=== PATIENT | female | born 1970 | race Caucasian/White ===

== ENCOUNTER → 2021-06-08 14:12 | Outpatient (BNVA) | payer BC, SELFPAY | PROVIDERS: PCP Internal Medicine; Visit Provider Physician Assistant Medical | DX: F17.210 Nicotine dependence, cigarettes, uncomplicated (principal) ==

== ENCOUNTER 2021-06-08 15:04 | Outpatient (REF) | payer BC, SELFPAY ==
--- NOTE | ~2021-06-08 | CT_ITS ---
EXAMINATION: CT CHEST SCREENING CLINICAL INFORMATION: Current smoker. 38 pack year history. COMPARISON: None. TECHNIQUE: Multidetector volumetric CT imaging of the chest is performed without contrast using low dose technique. Additional 2D coronal and sagittal reformatted images and axial 3D maximum intensity projection (MIP) images are generated on the CT workstation. This CT examination was performed using dose optimization techniques as appropriate, variously including the following: *Automated exposure control *Adjustment of mA and/or kV according to patient size (this includes techniques or standardized protocols for targeted exams where dose is matched to indication/reason for exam; i.e. extremities or head) *Use of iterative reconstruction technique DLP: 42 mGy-cm FINDINGS: LUNGS: The lungs are clear. No pulmonary nodules are seen. No evidence of emphysema interstitial lung disease or bronchiectasis is seen. No endobronchial or endotracheal lesion is seen. MEDIASTINUM: The mediastinum is normal. PLEURA: There is no pleural effusion. No pleural mass or thickening. AXILLA: No lymphadenopathy. UPPER ABDOMEN: Unremarkable OSSEOUS STRUCTURES: Unremarkable. CT/CT lung screening IMPRESSION: Unremarkable examination. ASSESSMENT: Lung-RADS category 1: Negative RECOMMENDATION: Annual low-dose chest CT recommended.
== END 2021-06-08 15:05 | disposition home or self-care (01) ==
LOC: HO.CT 15:04
PROVIDERS: PCP Internal Medicine; Visit Provider Physician Assistant Medical
DX: Z12.2 Encounter for screening for malignant neoplasm of respiratory organs (principal); F17.210 Nicotine dependence, cigarettes, uncomplicated
CPT/HCPCS: 71271

== ENCOUNTER 2021-09-06 11:01 | Outpatient (REF) | payer BC, SELFPAY ==
[2021-09-06 11:08] LABS: Appearance Urine CLEAR; Color Urine YELLOW; Glucose Urine UA NEG (NEG); Leukocyte Esterase Urine NEG (NEG); Nitrite Urine NEG (NEG); Urine Blood NEG (NEG); Urine Ketones NEG (NEG); Urine Protein NEG (NEG-TRACE)
[2021-09-06 12:14] LABS: Influenza A PCR NEGATIVE (Negative); Influenza B PCR NEGATIVE (Negative); Resp Syncy Virus RNA Qual PCR NEGATIVE (Negative); SARS COV2 PCR INHOUSE NEGATIVE (Negative)
== END 2021-09-06 11:02 | disposition home or self-care (01) ==
LOC: HO.LNP 11:01
PROVIDERS: Visit Provider Physician Assistant Medical
DX: Z20.822 Contact with and (suspected) exposure to COVID-19 (principal); B34.9 Viral infection, unspecified; R10.9 Unspecified abdominal pain
CPT/HCPCS: 0241U; 81003

== ENCOUNTER 2021-10-18 10:52 | Outpatient (REF) | payer BC, SELFPAY ==
[2021-10-18 14:08] LABS: Hematocrit 44.7 % (37.0-47.0); Hemoglobin 14.7 g/dl (12.0-16.0); Mean Corpuscular HGB Conc 32.9 g/dl (31.0-35.0); Mean Corpuscular Hemoglobin 30.4 pg (27.0-33.0); Mean Corpuscular Volume 92.4 fL (80.0-98.0); Mean Platelet Volume 9.9 fL (9.4-12.3); Platelet Count 270 X10*3/uL (160-400); Red Blood Count 4.84 X10*6/uL (4.20-5.50); Red Cell Distribution Width 13.3 % (11.0-16.0); White Blood Count 9.2 X10*3/uL (4.8-10.8)
[2021-10-18 14:17] LABS: Estimated Average Glucose 126 mg/dL
[2021-10-18 14:37] LABS: Alanine Aminotransferase 26 U/L (0-31); Albumin Level 4.6 g/dL (3.5-5.0); Alkaline Phosphatase 88 U/L (39-117); Anion Gap 11 (12-20); Aspartate Amino Transferase 18 U/L (5-31); Bilirubin Total 0.3 mg/dL (0.0-1.0); Blood Urea Nitrogen 10 mg/dL (9-16); Calcium 9.9 mg/dL (8.4-10.2); Carbon Dioxide 28 mmol/L (22-29); Chloride 108 mmol/L (96-108); Cholesterol 156 mg/dL; Estimated Glomerular Filt Rate > 60; Glucose Fasting 109 mg/dL (60-99); HDL Cholesterol 44 mg/dL; LDL Cholesterol Calculated 94 mg/dl; Potassium 4.8 mmol/L (3.3-5.1); Sodium 142 mmol/L (135-145); Total Protein 7.3 g/dL (6.5-8.0); Triglycerides 93 mg/dL
[2021-10-18 14:47] LABS: Vitamin D 25-OH Total 61.5 ng/mL (>30)
[2021-10-18 14:48] LABS: Creatinine Urine 48.16 mg/dL; Microalbumin Urine < 5.0 mg/L
[2021-10-18 15:26] LABS: Folate 11.5 ng/mL (> or = 4.0); Vitamin B12 506 pg/mL (200-900)
== END 2021-10-18 10:53 | disposition home or self-care (01) ==
LOC: HO.HMGCLDS 10:52
PROVIDERS: PCP Internal Medicine; Visit Provider Internal Medicine
DX: E78.5 Hyperlipidemia, unspecified (principal); R73.9 Hyperglycemia, unspecified
CPT/HCPCS: 36415; 80053; 80061; 82043; 82306; 82607; 82746; 83036; 85027

== ENCOUNTER 2021-11-06 13:49 | Outpatient (REF) | payer BC, SELFPAY ==
--- NOTE | ~2021-11-06 | US_ITS ---
EXAMINATION: US EXTRACRANIAL CAROTID DUPLEX, BILATERAL CLINICAL INFORMATION: Bilateral carotid bruits. COMPARISON: None TECHNIQUE: Real-time ultrasound and Doppler techniques (integrating B-mode 2-D vascular images, Doppler spectral analysis and color-flow Doppler imaging) were utilized to interrogate the extracranial carotid arteries, the vertebral arteries and proximal subclavian arteries bilaterally. The degree of stenosis is determined by criteria similar to NASCET. FINDINGS: Right Side: 1. There is no atherosclerotic plaque seen in the bifurcation/proximal ICA region. 2. The common carotid artery PSV proximally is 142 cm/s and distally 128 cm/s. 3. The proximal internal carotid artery velocities are 120 cm/s systolic and 31.4 cm/s diastolic. 4. The proximal external carotid artery PSV is 112 cm/s. 5. The vertebral artery shows antegrade flow. 6. The subclavian artery waveforms are normal. Left Side: 1. There is no atherosclerotic plaque seen in the bifurcation/proximal ICA region. 2. The common carotid artery PSV proximally is 140 cm/s and distally 111 cm/s. 3. The proximal internal carotid artery velocities are 88.5 cm/s systolic and 30.5 cm/s diastolic. 4. The proximal external carotid artery PSV is 120 cm/s. 5. The vertebral artery shows antegrade flow. 6. The subclavian artery waveforms are normal. US/US carotid duplex BI IMPRESSION: 1. RIGHT: No hemodynamically significant stenosis. 2. LEFT: No hemodynamically significant stenosis. 3. Normal antegrade flow seen in both vertebral arteries.
== END 2021-11-06 13:50 | disposition home or self-care (01) ==
LOC: HO.HMGCX 13:49
PROVIDERS: PCP Internal Medicine; Visit Provider Internal Medicine
DX: R09.89 Other specified symptoms and signs involving the circulatory and respiratory systems (principal)
CPT/HCPCS: 93880

== ENCOUNTER 2021-11-12 10:21 | Outpatient (REF) | payer BC, SELFPAY ==
--- NOTE | ~2021-11-12 | XR_ITS ---
EXAMINATION: XR SINUSES CLINICAL INFORMATION: Chronic sinusitis. COMPARISON: None TECHNIQUE: 3 views of the sinuses were obtained. FINDINGS: There is no air-fluid levels seen in the maxillary and frontal sinuses. There is minimal mucoperiosteal thickening left maxillary sinus. The mastoid air cells are well-aerated. No gross bony abnormality seen involving the maxillofacial bone on this one view. XR/XR sinus dash view IMPRESSION: Mild chronic left maxillary sinusitis. No air-fluid levels seen in the maxillary or frontal sinuses to suspect any acute sinusitis.
== END 2021-11-12 10:22 | disposition home or self-care (01) ==
LOC: HO.HMGCX 10:21
PROVIDERS: Visit Provider Internal Medicine
DX: J32.9 Chronic sinusitis, unspecified (principal)
CPT/HCPCS: 70210

== ENCOUNTER 2021-12-07 13:49 | Outpatient (REF) | payer BC, SELFPAY ==
[2021-12-22 14:43] LABS: Viral Culture Source NASAL
== END 2021-12-07 13:50 | disposition home or self-care (01) ==
LOC: HO.LNP 13:49
PROVIDERS: Visit Provider Internal Medicine
DX: J30.9 Allergic rhinitis, unspecified (principal)
CPT/HCPCS: 87252

== ENCOUNTER 2022-02-12 10:31 | Outpatient (REF) | payer BC, SELFPAY ==
[2022-02-12 12:01] LABS: Estimated Average Glucose 117 mg/dL; Hemoglobin A1c % 5.7 %
[2022-02-12 12:05] LABS: Creatinine Urine 57.96 mg/dL; Microalbumin Urine < 5.0 mg/L
[2022-02-12 12:08] LABS: Alanine Aminotransferase 19 U/L (0-31); Albumin Level 4.6 g/dL (3.5-5.0); Alkaline Phosphatase 83 U/L (39-117); Anion Gap 12 (12-20); Aspartate Amino Transferase 16 U/L (5-31); Bilirubin Total 0.4 mg/dL (0.0-1.0); Blood Urea Nitrogen 13 mg/dL (9-16); Calcium 9.7 mg/dL (8.4-10.2); Carbon Dioxide 26 mmol/L (22-29); Chloride 108 mmol/L (96-108); Cholesterol 145 mg/dL; Estimated Glomerular Filt Rate > 60; Glucose Fasting 107 mg/dL (60-99); HDL Cholesterol 40 mg/dL; LDL Cholesterol Calculated 92 mg/dl; Potassium 4.2 mmol/L (3.3-5.1); Sodium 142 mmol/L (135-145); Total Protein 7.2 g/dL (6.5-8.0); Triglycerides 68 mg/dL
== END 2022-02-12 10:32 | disposition home or self-care (01) ==
LOC: HO.HMGCLDS 10:31
PROVIDERS: Visit Provider Internal Medicine
DX: J32.9 Chronic sinusitis, unspecified (principal); R73.9 Hyperglycemia, unspecified; E78.5 Hyperlipidemia, unspecified
CPT/HCPCS: 36415; 80053; 80061; 82043; 83036

== ENCOUNTER 2022-08-14 09:35 | Outpatient (REF) | payer BC, SELFPAY ==
[2022-08-14 11:48] LABS: Estimated Average Glucose 120 mg/dL; Hemoglobin A1C 150.4481 umol/L; Hemoglobin A1c % 5.8 %
[2022-08-14 11:59] LABS: Alanine Aminotransferase 29 U/L (0-31); Albumin Level 4.7 g/dL (3.5-5.0); Alkaline Phosphatase 104 U/L (39-117); Anion Gap 14 (12-20); Aspartate Amino Transferase 23 U/L (5-31); Bilirubin Total < 0.2 mg/dL (0.0-1.0); Blood Urea Nitrogen 14 mg/dL (9-16); Calcium 9.9 mg/dL (8.4-10.2); Carbon Dioxide 27 mmol/L (22-29); Chloride 107 mmol/L (96-108); Cholesterol 209 mg/dL; Estimated Glomerular Filt Rate > 60; Glucose Fasting 107 mg/dL (60-99); HDL Cholesterol 36 mg/dL; LDL Cholesterol Calculated 99 mg/dl; Potassium 4.1 mmol/L (3.3-5.1); Sodium 144 mmol/L (135-145); Total Protein 7.3 g/dL (6.5-8.0); Triglycerides 373 mg/dL
[2022-08-14 12:08] LABS: TSH reflex Free T4 3.34 uIU/mL (0.32-4.0)
== END 2022-08-14 09:36 | disposition home or self-care (01) ==
LOC: HO.HMGCLDS 09:35
PROVIDERS: PCP Internal Medicine; Visit Provider Internal Medicine
DX: R73.9 Hyperglycemia, unspecified (principal); E78.5 Hyperlipidemia, unspecified
CPT/HCPCS: 36415; 80053; 80061; 83036; 84443

== ENCOUNTER 2022-08-19 12:23 | Outpatient (REF) | payer BC, SELFPAY ==
[2022-08-19 14:40] LABS: Cholesterol 211 mg/dL; HDL Cholesterol 57 mg/dL; LDL Cholesterol Calculated 124 mg/dl; Triglycerides 151 mg/dL
== END 2022-08-19 12:24 | disposition home or self-care (01) ==
LOC: HO.HMGCLDS 12:23
PROVIDERS: PCP Internal Medicine; Visit Provider Internal Medicine
DX: E78.5 Hyperlipidemia, unspecified (principal); R09.89 Other specified symptoms and signs involving the circulatory and respiratory systems
CPT/HCPCS: 36415; 80061

== ENCOUNTER 2023-03-21 13:51 | Outpatient (REF) | payer BC, SELFPAY ==
--- NOTE | ~2023-03-21 | CT_ITS ---
EXAMINATION: LUNG CANCER SCREENING CT CHEST WITHOUT CONTRAST CLINICAL INFORMATION: Current smoker with 40 pack year history COMPARISON: 06/08/2021 TECHNIQUE: Multidetector volumetric CT imaging of the chest was obtained noncontrast using low dose screening CT technique. Axial thin section 0.625 mm reformations in soft tissue and lung windows were obtained. Sagittal and coronal reformations were obtained. Axial MIP images were also created and reviewed. This CT examination was performed using dose optimization techniques as appropriate, variously including the following: *Automated exposure control *Adjustment of mA and/or kV according to patient size (this includes techniques or standardized protocols for targeted exams where dose is matched to indication/reason for exam; i.e. extremities or head) *Use of iterative reconstruction technique TOTAL EXAM DLP: 46 mGy-cm FINDINGS: PULMONARY NODULES (see tompkins images): No suspicious pulmonary nodules. LUNGS / PLEURA: Minimal emphysema. Diffuse mild bronchial wall thickening without bronchiectasis. No pleural effusion or pneumothorax. MEDIASTINUM / EV: Heart normal in size without pericardial effusion. Great vessels normal caliber. No lymphadenopathy. Coronary calcifications absent. Imaged thyroid gland unremarkable. CHEST WALL / AXILLA: Unremarkable. UPPER ABDOMEN: Included portions grossly unremarkable allowing for limitations in technique. OSSEOUS STRUCTURES: No acute or suspicious osseous abnormalities. CT/CT lung screening IMPRESSION: * No evidence of pulmonary malignancy. * Mild emphysema and chronic airways disease. ASSESSMENT: Lung RADS category: 1. Negative. No nodules or definitely benign nodules. Continue annual screening with low-dose CT in 12 months. Probability of malignancy less than 1%. RECOMMENDATION: Follow up low dose CT chest in 1 year.
== END 2023-03-21 13:52 | disposition home or self-care (01) ==
LOC: HO.CT 13:51
PROVIDERS: PCP Internal Medicine; Visit Provider Physician Assistant Medical
DX: Z12.2 Encounter for screening for malignant neoplasm of respiratory organs (principal); F17.210 Nicotine dependence, cigarettes, uncomplicated
CPT/HCPCS: 71271

== ENCOUNTER → 2023-03-28 14:44 | Outpatient (REF) | payer BC, SELFPAY ==
--- NOTE | 2023-03-28 14:47 | CA_ITS ---
Transthoracic Echocardiogram Patient (Last, First, Middle): Kasia Sharp, Gender: Female Date of : 1970 Age: 52 Procedure Date: 03/28/2023 Procedure Type: Transthoracic Echocardiogram Location: OP Height: 162.56 cm Weight: 63.5 kg BSA: 1.68 m2 Heart Rate: 68 bpm BP: 124 / 84 mmHg Zipper Machine Operator: SB Referring MD: Keyla Temple MD Symptoms: R07.9 - Chest pain, unspecified Study Quality: Adequate w contrast ECG Rhythm: Sinus Conclusions: - The left ventricular systolic function is normal. The calculated ejection fraction is 65% by biplane method. - There is mildly decreased right ventricular systolic function. - No obvious valvular pathology seen on this study. Findings Procedure Information Contrast agent, definity, is being given per protocol without apparent complications. Left Ventricle Normal left ventricular cavity size. There is normal left ventricular wall thickness. The left ventricular systolic function is normal. The calculated ejection fraction is 65% by biplane method. There is no evidence of regional wall motion abnormalities. Diastolic function is normal for age. Right Ventricle Normal right ventricular cavity size. There is mildly decreased right ventricular systolic function. Atria Both atria are normal in size. Aortic Valve There is a normal trileaflet aortic valve. There is no aortic valve stenosis. There is no aortic valve regurgitation. Mitral Valve The mitral valve appears normal. There is mild anterior mitral leaflet thickening. There is no mitral valve regurgitation. There is no mitral valve stenosis. Pulmonic Valve The pulmonic valve is likely normal. Tricuspid Valve There is trace tricuspid valve regurgitation. There is no evidence of pulmonary hypertension. Great Vessels The asc aorta is normal in size. Venous The inferior vena cava is normal in size and collapses greater than 50% with inspiration. Pericardium/Pleural There is no evidence of pericardial effusion. Prior Study Comparison No prior study available for comparison. Recommendations, Care & Conclusions No obvious valvular pathology seen on this study. Measurements 2D Linear Measurements IVSd: 0.95 0.6-0.9/0.6-1.0 cm LVIDd: 4.67 3.9-5.3/4.2-5.9 cm LVIDd Index: 2.78 2.4-3.2/2.2-3.1 cm/m2 LVIDs: 3.05 2.0-3.6 cm LVPWd: 0.66 0.7-1.1 cm LA Diam: 3.00 2.7-3.8/3.0-4.0 cm LAIDs Index: 1.79 1.5-2.3 cm/m2 LV Mass: 150.92 67-162/88-224 g LV Mass Index: 89.83 43-95/49-115 g/m2 LVOT Diam: 2.00 3.0+(-)1.3 cm 2D Systolic Function EF 4C: 56.20 >55% EF 2C: 71.50 >55% EF BiP: 64.60 >55% Mitral Valve MV Pk E: 0.51 MV PK A: 0.73 MV Decel Time: 302.00 E/A: 0.70 E'Lateral: 11.00 E'Medial: 7.83 E/E' Med: 6.50 E/E' Lat: 4.60 PHT: 89.00 MVA PHT: 2.47 Decel [place]: 1.69 Aortic Valve AoV Pk Samy: 1.05 AoV Pk Grad: 4.00 JESSY: 3.26 LVOT LVOT Pk Samy: 1.09 LVOT Mn Samy: 0.79 LVOT VTI: 0.23 LVOT Pk Grad: 5.00 LVOT Mn Grad: 3.00 LVOT Diam: 2.00 LVOT Area: 3.14 Diastolic Function MV Pk E: 0.51 MV Pk A: 0.73 E/A: 0.70 E'Medial: 7.83 E/E' Med: 6.50 E' Laterial: 11.00 E/E' Lat: 4.60 Right Ventricle TAPSE (mm): 18.40 Tricuspid Valve RA Press: 3.00 Great Vessels Aorta Sinus of Valsalva: 2.50 2.0-3.5 cm Ao Asc: 2.90 2.1-3.4 cm Pulmonary Veins Pulm Vein S/D 1.50 Pulmonary Valve PV Pk Samy: 1.07 Peak PV Grad: 5.00 Updated in Other Vendor System with Status of Final John Cifuentes MD electronically signed on 03/29/2023 1:21:37 PM with status of Final
== END ==
LOC: HO.CARD 14:44
PROVIDERS: PCP Internal Medicine; Visit Provider Internal Medicine
DX: R07.9 Chest pain, unspecified (principal); I10 Essential (primary) hypertension
CPT/HCPCS: 93306; Q9957

== ENCOUNTER 2023-04-11 11:31 | Outpatient (REF) | payer BC, SELFPAY | END 2023-04-11 11:32 | disposition home or self-care (01) | LOC: HO.HMGCX 11:31 | PROVIDERS: PCP Internal Medicine; Visit Provider Internal Medicine | DX: M25.562 Pain in left knee (principal) | CPT/HCPCS: 73564 ==

== ENCOUNTER 2023-05-15 11:00 | Outpatient (RCR) | payer BC, SELFPAY ==
--- NOTE | 2023-04-21 15:35 | MHC.PT.EP ---
[facility] [place] Office [place] Office [place] Office [address] Dylon Rolle [address] [phone] F: [phone] F: [phone] F: [phone] F: [phone] Physical Therapy Plan of Care Date of Evaluation: Date of Surgery: Diagnosis: This is a 52 yo female presenting to skilled PT with a script for pain in L knee. Assessment: This is a 52 yo female presenting to skilled PT with a script for pain in L knee. Patient reporting that her knee pain is new but has been ongoing for about 7 weeks now. Her pain started after she had an abdominal hernia surgery and lipoma removal on January 27 2023. She normally walks 3-5 miles a day (circular track in her house, surface is linoleum and hardwood) but after her surgeries she stopped for 4 weeks and then started back up again. Once she started walking again she started to have L foot pain (at the PF insertion and at the medial midfoot) that then started to cause pain at her knee (medial and inferior to joint line and posterior knee). She went to podiatry who gave her exercises but these are not helping too much. Her PMHx is significant for near and partial tendon tear in her plantar fascia in both feet (2006). Pain increases with walking, stairs, squatting and weight bearing in general. In terms of pain management she always wears her vionic shoes, her inserts (power steps) in all shoes, has tried stationary biking as an adjunct to walking, ankle compression sleeve, knee sleeve, fibro cream (topocin), night spilt for foot and walking boots but is having little relief to pain. She does not want to stop walking as this helps her with anxiety. She is also here for advice on pillow, cervical stretches. Assessment reveals pain that ranges from 6-8/10. Patient demos decreased hip ROM, strength of ankle, TTP at medial knee and posterior knee as well as PF and midfoot at cuneiform. I suspect her foot is causing her to have knee symptoms and she would benefit from PT addressing both. Based on functional limitations, impaired QOL and pain tolerance patient is a good candidate for skilled PT 2x/wk for 4wks but we will trial 3 sessions to start as the patient has an extensive PMHx and schedule. Frequency and Duration: The patient will be seen 2x/wk for 4wks Short Term Goals: (in 2 weeks) I in HEP Improve gastroc length by 5 degs nonpainful Demo proper understanding of anatomy and appropriate routine to prevent re-injury Fdc Goals: (in 4 weeks) Demo normal ROM and strength B Return to normal walking routine without pain Improve LEFs by 10 points Treatment Plan: Modalities to reduce pain, spasms and effusion. Manual therapy to restore motion and function. Therapeutic exercise to improve strength and flexibility. Neuromuscular re-education for posture and balance. Therapeutic activities to return to functional activities of daily living. Electronically signed by: Elissa Higginbotham PT Please sign and return to therapist. Thank you for your referral.
--- NOTE | 2023-06-18 10:19 | MHC.PT.DC ---
[facility] [place] [facility] [place] Office [place] Office [address] Dylon Rolle [address] [phone] F: [phone] F: [phone] F: [phone] F: [phone] Physical Therapy Discharge Report Diagnosis: This is a 52 yo female presenting to skilled PT with a script for pain in L knee. Date of Surgery: Date of Evaluation: 04/21/23 Date of Discharge: 06/18/23 Treatments to Date: 5 Cancellations to Date: 0 No Shows to Date: 0 Discharge Status: Achieved Goals Improved Function Independent with HEP Discharge Summary: 05/15: Patient with ongoing ther-ex questions, bike assessment, safety, pain management. Educated her on DC today however chart will be kept open if she would like to return for 30 days. Educated her to continue her exercise routine unless pain increases. She is have autoimmune testing done and educated her that some of her aches and pain could be from this diagnosis and to continue to work with her doctors on appropriate care. At this time she is I with her program and ready for self management. Electronically signed by: Elissa Higginbotham PT Please sign and return to therapist. Thank you for your referral.
== END 2023-06-18 10:19 | disposition home or self-care (01) ==
LOC: HO.PTCHIC 11:00
PROVIDERS: PCP Internal Medicine; Visit Provider Internal Medicine
DX: M25.562 Pain in left knee (principal)
CPT/HCPCS: 97110; 97140; 97162

== ENCOUNTER 2023-08-07 08:18 | Outpatient (REF) | payer BC, SELFPAY ==
[2023-08-07 11:26] LABS: MANUAL DIFF FLAG NO
[2023-08-07 11:41] LABS: Estimated Average Glucose 114 mg/dL; Hemoglobin A1c % 5.6 % (<6.0)
[2023-08-07 11:51] LABS: Basophils Percent Auto 0.4 % (0-2); Eosinophils Absolute Auto 0.2 X10*3/uL (0.0-0.4); Eosinophils Percent Auto 1.5 % (0-4); Hematocrit 44.5 % (37.0-47.0); Hemoglobin 14.9 g/dl (12.0-16.0); Imm Gran Abs Auto 0.05 X10*3/uL (0.00-0.03); Imm Gran Pct Auto 0.5 % (0.0-0.4); Lymphocytes Absolute Auto 3.9 X10*3/uL (1.2-4.9); Lymphocytes Percent Auto 36.9 % (20-40); Mean Corpuscular HGB Conc 33.5 g/dl (31.0-35.0); Mean Corpuscular Hemoglobin 30.6 pg (27.0-33.0); Mean Corpuscular Volume 91.4 fL (80.0-98.0); Mean Platelet Volume 10.3 fL (9.4-12.3); Monocytes Absolute Auto 0.6 X10*3/uL (0.1-1.2); Monocytes Percent Auto 5.9 % (2-11); Neutrophils Absolute Auto 5.8 x10*3/uL (2.0-8.3); Neutrophils Percent Auto 54.8 % (45-73); Platelet Count 244 X10*3/uL (160-400); Red Blood Count 4.87 X10*6/uL (4.20-5.50); Red Cell Distribution Width 12.6 % (11.0-16.0); White Blood Count 10.6 X10*3/uL (4.8-10.8)
[2023-08-07 12:00] LABS: Alanine Aminotransferase 22 U/L (0-31); Albumin Level 4.6 g/dL (3.5-5.0); Alkaline Phosphatase 84 U/L (39-117); Anion Gap 10 (12-20); Aspartate Amino Transferase 18 U/L (5-31); Bilirubin Total 0.4 mg/dL (0.0-1.0); Blood Urea Nitrogen 11 mg/dL (9-16); Calcium 10.2 mg/dL (8.4-10.2); Carbon Dioxide 29 mmol/L (22-29); Chloride 109 mmol/L (96-108); Cholesterol 119 mg/dL (<200); Estimated Glomerular Filt Rate > 60; Glucose Fasting 94 mg/dL (60-99); HDL Cholesterol 31 mg/dL (>40); LDL Cholesterol Calculated 66 mg/dL (<100); Potassium 4.4 mmol/L (3.3-5.1); Sodium 144 mmol/L (135-145); Total Protein 7.3 g/dL (6.5-8.0); Triglycerides 110 mg/dL (<150)
[2023-08-07 12:19] LABS: TSH reflex Free T4 2.35 uIU/mL (0.32-4.0); Vitamin D 25-OH Total 98.1 ng/mL (>30)
[2023-08-07 12:30] LABS: Creatinine Urine 28.37 mg/dL; Microalbumin Urine < 5.0 mg/L
[2023-08-07 12:38] LABS: Vitamin B12 658 pg/mL (200-900)
[2023-08-07 13:40] LABS: Folate 16.4 ng/mL (> or = 4.0)
== END 2023-08-07 08:19 | disposition home or self-care (01) ==
LOC: HO.HMGCLDS 08:18
PROVIDERS: PCP Internal Medicine; Visit Provider Internal Medicine
DX: I10 Essential (primary) hypertension (principal); M35.9 Systemic involvement of connective tissue, unspecified; M79.7 Fibromyalgia
CPT/HCPCS: 36415; 80053; 80061; 82043; 82306; 82570; 82607; 82746; 83036; 84443; 85025

== ENCOUNTER 2023-09-02 10:13 | Outpatient (AMB) | payer BC, SELFPAY ==
[2023-09-02 10:26] VITALS: BP 112/80; PULSE 75; O2SAT 99; BMI 24.7
--- NOTE | 2023-09-02 10:26 | MHC.PC.OV ---
Vital Signs 09/02/23 10:26 Height 5 ft 4 in Weight 144 lb BMI 24.7 BP 112/80 Blood Pressure Location Lt brachial Position Sitting Pulse 75 Pulse Source Pulse Oximeter Pulse Oximetry (%) 99 Oxygen Delivery Method Room Air Intake Visit Reasons: Annual PE Intake Note: Pt is here today for PE. Allergies Sulfa (Sulfonamide Antibiotics) [SULFA (SULFONAMIDE ANTIBIOTICS)] Allergy (Severe, Verified 09/02/23 10:28) ANAPHYLAXIS ciprofloxacin [Cipro] Allergy (Unknown, Verified 09/02/23 10:28) Muscle Pain Histamine H2 Inhibitors [HISTAMINE H2 INHIBITORS] Allergy (Unknown, Verified 09/02/23 10:28) DIFFICULTY BREATHING Iodinated Contrast Media [IV CONTRAST] Allergy (Unknown, Verified 09/02/23 10:28) hives lactose [LACTOSE] Allergy (Unknown, Verified 09/02/23 10:28) stomach upset levofloxacin [From LEVAQUIN] Allergy (Unknown, Verified 09/02/23 10:28) HIVES morphine [MORPHINE] Allergy (Unknown, Verified 09/02/23 10:28) HIVES Medication List - Last Reconciled 09/02/23 by Keyla Temple MD alprazolam 0.5 mg PO DAILY PRN cholecalciferol (vitamin D3) 50 mcg PO DAILY coenzyme Q10 (Ultra CoQ10) PO cyclobenzaprine 10 mg PO BEDTIME dexlansoprazole 60 mg PO DAILY flu vac qs 2019(4 yr up)CD(PF) mL IM fluconazole 100 mg PO DAILY hydroxyzine HCl 25 mg PO BEDTIME ibuprofen 600 mg PO TID lidocaine 5% 1 patch topical DAILY metoprolol succinate ER 25 mg PO DAILY mupirocin 2% 1 appl topical BID [id number] 3.5-10,000-1 mg/mL-unit/mL-% 4 drps otic (ear) left Q8H omega-3 fatty acids (Fish Oil) PO rosuvastatin 5 mg PO DAILY Tobacco use date assessed: 09/02/23 Dental Screening Dental Screen Date: 09/02/23 Did you have a dental visit in the last 12 months?: Yes Did you have a dental problem in the last 6 months where you did not have access to dental care?: No Was dental information given to patient?: Patient has dentist HPI Annual PE HPI Details Pt presents for PE. Patient had abdominal wall hernia repair with mesh placement [address] Petersen. She complains of persistent epigastric and abdominal discomfort and bloating worse after eating and walking or standing for long time. Patient underwent EGD and colonoscopy on July 30 and was found to have a small hiatal hernia and one 4 mm colon polyp consistent with tubular adenoma. A repeat colonoscopy was recommended in 5 years. Patient had stomach gastric emptying study consistent with solid food evacuation time clearance at 153 minutes with normal less than 90 min and 4 hour retention amount was calculated less than 10% Patient has been very anxious about her bloating symptoms and scheduled an appointment in Nov at [facility] to discuss hiatal hernia repair surgery. [facility] Medical History (Updated 09/02/23 @ 11:59 by Keyla Temple MD) Sinusitis Neuropathy Kidney stones Mast cell disorder Barretts esophagus Abdominal hernia History of TIA (transient ischemic attack) (~2011) Personal history of nicotine dependence Hyperglycemia Osteoporosis Panic attacks Diverticulosis RLS (restless legs syndrome) Fatty liver Common variable immunodeficiency Interstitial cystitis Nephrolithiasis History of IBS Hyperlipidemia Surgical History History of nasal surgery History of partial colectomy (~05/2020) History of umbilical hernia repair History of (~1995) History of colonoscopy History of cystoscopy History of bone marrow biopsy (~2003) History of appendectomy History of tonsillectomy (~1997) History of esophagogastroduodenoscopy (EGD) History of arthroscopic surgery of shoulder (~01/2015) History of hysterectomy with bilateral oophorectomy (~07/2007) Family History Maternal Aunt Mental health disorder Housing: House Alcohol intake: current Alcohol intake frequency: does not drink Patient Tobacco Use Status: Former Tobacco user Tobacco use type: Cigarette Years Smoked: 38 (onset 12, 1ppd x30yrs - now 1/4ppd - 30+PYH) e-Cigarette/Vaping Use: Never Used Current occupational status: unemployed Cognitive needs: No Hearing needs: No Vision needs: Yes Questionnaire Thrive Questionnaire Date Thrive assessed: 04/11/23 AUDIT C Alcohol Use Questionnaire (AUDIT-C) 1. How often do you have a drink containing alcohol?: Never 3. How often do you have six or more drinks on one occasion?: Never Total Score: 0 DULCE MARIA-7 AMB Questionnaire DULCE MARIA-7 Date DULCE MARIA - 7 assessed: 04/11/23 Source: Developed by Drs. Cesar Santiago, Chandrika Oglesby, oJse L Medina and colleagues, with an educational kendall from [employer]. Review of Systems Const All systems reviewed & are unremarkable except as noted in HPI and below Reports no additional complaints Eyes Reports no additional complaints ENT Reports no additional complaints Card Reports no additional complaints Resp Reports no additional complaints GI Reports no additional complaints Reports no additional complaints Physical exam (Primary Care) Vital Signs: Last Vital Signs Pulse 75 09/02/23 10:26 BP 112/80 09/02/23 10:26 Pulse Ox 99 09/02/23 10:26 Oxygen Delivery Method Room Air 09/02/23 10:26 BMI result Body Mass Index 24.7 Tobacco/Smoking Status: Tobacco use Status Tobacco use date assessed 09/02/23 09/02/23 10:35 Patient Tobacco Use Status Former Tobacco user 09/02/23 10:35 Tobacco use type Cigarette 09/02/23 10:27 e-Cigarette/Vaping Use Never Used 09/02/23 10:27 Thrive Assessment: Date of Thrive Assessment Date Thrive assessed 04/11/23 09/02/23 10:27 Const General: no acute distress HENMT Head: Yes normal to inspection Ears: hearing grossly normal bilaterally Face and sinus: Yes normal facial exam Mouth: Normal oral and palatal mucosa present Throat: Yes posterior oropharynx normal Eyes General: appearance normal, both eyes and all related structures Neck Neck: Yes no lymphadenopathy and Yes supple Resp Effort & Inspection: normal respiratory effort Auscultation: clear to auscultation bilaterally Cardio Rhythm: regular rhythm Heart sounds: S1 normal heart sound present and S2 normal heart sound present GI Inspection: Yes normal to inspection Palpation (GI): Soft to palpation Percussion: Yes normal to percussion Auscultation: normal bowel sounds Assessment and Plan Assessment & Plan (1) HTN (hypertension): Code(s): I10 - Essential (primary) hypertension Plan: cont Metoprolol (2) Hyperlipidemia: Code(s): E78.5 - Hyperlipidemia, unspecified Plan: cont statin, check CT coronary Ca score (3) Panic attacks: Comment: with anxiety, AshlieM Gionfriddo therapist, Alprazolam 0.25 mg Code(s): F41.0 - Panic disorder [episodic paroxysmal anxiety] Plan: pt declined SSRI (4) Abdominal hernia: Comment: (hx umbilical hernias - hx surgery. s/p abd wall hernia repair and mesh placement by Dr. 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
== END 2023-09-02 11:54 | disposition home or self-care (01) ==
PROVIDERS: Visit Provider Internal Medicine
DX: I10 Essential (primary) hypertension (principal); E78.5 Hyperlipidemia, unspecified; F41.0 Panic disorder [episodic paroxysmal anxiety]; K46.9 Unspecified abdominal hernia without obstruction or gangrene; Z00.00 Encounter for general adult medical examination without abnormal findings
CPT/HCPCS: 99396

== ENCOUNTER 2024-03-15 15:05 | Outpatient (REF) | payer BC, SELFPAY ==
--- NOTE | ~2024-03-15 | CT_ITS ---
EXAMINATION: CT LOW-DOSE SCREENING CHEST WITHOUT CONTRAST CLINICAL INFORMATION: Nicotine dependence, cigarettes, uncomplicated. The patient is a current smoker with a 40 pack-year history of smoking. COMPARISON: CT chest 03/21/2023 and 06/08/2021. TECHNIQUE: Multidetector volumetric CT imaging of the chest is performed on a Siemens SOMATOM Definition scanner without contrast using low dose technique. Additional 2D coronal and sagittal reformatted images and axial 3D maximum intensity projection (MIP) images are generated on the CT workstation. This CT examination was performed using dose optimization techniques as appropriate, variously including the following: *Automated exposure control *Adjustment of mA and/or kV according to patient size (this includes techniques or standardized protocols for targeted exams where dose is matched to indication/reason for exam; i.e. extremities or head) *Use of iterative reconstruction technique TOTAL EXAM DLP: 37 mGy-cm. CTDIvol: 1.12 mGy. FINDINGS: PULMONARY NODULES: No suspicious pulmonary nodules. LUNGS: Mild centrilobular emphysematous change of lungs. No suspicious lung nodule. No acute airspace disease. Central bronchial airways are open. MEDIASTINUM: No mediastinal, hilar or axillary adenopathy or free fluid collection. CORONARY ARTERY CALCIFICATION: None visualized on this study. THYROID GLAND: Unremarkable to the extent seen. CARDIOVASCULAR STRUCTURES: Aortic and heart size normal. No pericardial effusion. CHEST WALL/AXILLA: Unremarkable. UPPER ABDOMEN: Included portions of the solid organs in the upper abdomen unremarkable on noncontrast imaging. OSSEOUS STRUCTURES: No suspicious focal findings. CT/CT lung screening IMPRESSION: 1. Mild centrilobular emphysematous change of lungs. 2. No suspicious lung nodules. ASSESSMENT: 1. Lung-RADS Category 1: Negative. There are no nodules or there are definitely benign nodules. 2. Lung-RADS Category S: Negative. There are no clinically significant or potentially clinically significant findings not related to the lungs requiring urgent additional evaluation. RECOMMENDATION: Continued routine annual low-dose CT lung screening in 1 year is recommended. An order for CT CHEST LOW DOSE CANCER SCREENING ([id number]) can be placed.
[2024-03-15 15:24] LABS: MANUAL DIFF FLAG NO
[2024-03-15 15:52] LABS: Basophils Absolute Auto 0.1 X10*3/uL (0.0-0.2); Basophils Percent Auto 0.4 % (0-2); Eosinophils Absolute Auto 0.1 X10*3/uL (0.0-0.4); Eosinophils Percent Auto 0.5 % (0-4); Hematocrit 42.7 % (37.0-47.0); Hemoglobin 14.1 g/dl (12.0-16.0); Imm Gran Abs Auto 0.02 X10*3/uL (0.00-0.03); Imm Gran Pct Auto 0.2 % (0.0-0.4); Lymphocytes Absolute Auto 4.6 X10*3/uL (1.2-4.9); Lymphocytes Percent Auto 40.8 % (20-40); Mean Corpuscular Volume 90.9 fL (80.0-98.0); Mean Platelet Volume 9.3 fL (9.4-12.3); Monocytes Absolute Auto 0.6 X10*3/uL (0.1-1.2); Monocytes Percent Auto 5.1 % (2-11); Neutrophils Absolute Auto 5.9 x10*3/uL (2.0-8.3); Platelet Count 242 X10*3/uL (160-400); Red Cell Distribution Width 12.9 % (11.0-16.0); White Blood Count 11.2 X10*3/uL (4.8-10.8)
[2024-03-15 16:22] LABS: Alanine Aminotransferase 20 U/L (0-31); Albumin Level 4.7 g/dL (3.5-5.0); Alkaline Phosphatase 87 U/L (39-117); Anion Gap 11 (12-20); Aspartate Amino Transferase 17 U/L (5-31); Bilirubin Total 0.5 mg/dL (0.0-1.0); Blood Urea Nitrogen 11 mg/dL (9-16); Calcium 9.8 mg/dL (8.4-10.2); Carbon Dioxide 27 mmol/L (22-29); Chloride 107 mmol/L (96-108); Cholesterol 153 mg/dL (<200); Estimated Glomerular Filt Rate > 60; Glucose Fasting 99 mg/dL (60-99); HDL Cholesterol 44 mg/dL (>40); LDL Cholesterol Calculated 88 mg/dL (<100); Potassium 3.7 mmol/L (3.3-5.1); Sodium 141 mmol/L (135-145); Total Protein 7.4 g/dL (6.5-8.0); Triglycerides 108 mg/dL (<150)
== END 2024-03-15 15:06 | disposition home or self-care (01) ==
LOC: HO.CT 15:05
PROVIDERS: Absent Provider Internal Medicine; PCP Internal Medicine; Visit Provider Physician Assistant Medical
DX: Z12.2 Encounter for screening for malignant neoplasm of respiratory organs (principal); F17.210 Nicotine dependence, cigarettes, uncomplicated; I10 Essential (primary) hypertension; E78.5 Hyperlipidemia, unspecified; R73.9 Hyperglycemia, unspecified
CPT/HCPCS: 36415; 71271; 80053; 80061; 82306; 84443; 85025

== ENCOUNTER 2024-03-25 13:47 | Outpatient (AMB) | payer BC, SELFPAY ==
[2024-03-25 13:49] VITALS: BP 144/86; PULSE 76; O2SAT 99; BMI 24.4
--- NOTE | 2024-03-25 13:49 | MHC.PC.OV ---
Vital Signs 03/25/24 13:49 Height 5 ft 4 in Weight 142 lb 2 oz BMI 24.4 BP 144/86 H Blood Pressure Location Rt brachial Position Sitting Pulse 76 Pulse Source Pulse Oximeter Pulse Oximetry (%) 99 Oxygen Delivery Method Room Air Intake Visit Reasons: [facility]-infected finger, per Dr Guzman Intake Note: Pt is here today for hdf follow up from [facility] Allergies Sulfa (Sulfonamide Antibiotics) [SULFA (SULFONAMIDE ANTIBIOTICS)] Allergy (Severe, Verified 07/06/24 01:40) ANAPHYLAXIS ciprofloxacin [Cipro] Allergy (Unknown, Verified 07/06/24 01:40) Muscle Pain Histamine H2 Inhibitors [HISTAMINE H2 INHIBITORS] Allergy (Unknown, Verified 07/06/24 01:40) DIFFICULTY BREATHING Iodinated Contrast Media [IV CONTRAST] Allergy (Unknown, Verified 07/06/24 01:40) hives lactose [LACTOSE] Allergy (Unknown, Verified 07/06/24 01:40) stomach upset levofloxacin [From LEVAQUIN] Allergy (Unknown, Verified 07/06/24 01:40) HIVES morphine [MORPHINE] Allergy (Unknown, Verified 07/06/24 01:40) HIVES Medication List - Last Reconciled 07/06/24 by Radha Steve MD alprazolam 0.5 mg PO DAILY PRN amoxicillin-pot clavulanate 875-125 mg 1 tab PO BID cholecalciferol (vitamin D3) 50 mcg PO DAILY coenzyme Q10 (Ultra CoQ10) PO dexlansoprazole 60 mg PO DAILY meclizine 25 mg PO TID methocarbamol 500 mg PO BEDTIME metoprolol succinate ER 25 mg PO DAILY omega-3 fatty acids (Fish Oil) PO rosuvastatin 5 mg PO DAILY Tobacco use date assessed: 03/25/24 Dental Screening Dental Screen Date: 03/25/24 Did you have a dental visit in the last 12 months?: Yes Did you have a dental problem in the last 6 months where you did not have access to dental care?: No Was dental information given to patient?: Patient has dentist HPI [facility]-infected finger, per Dr Guzman HPI Details 52-year-old female with history of immunosuppression, has IgG deficiency, here today for follow-up after recent ER visit at [facility]. She was bitten by cat on right hand and left hand on March 13, presented to urgent care on March 15 and was started on oral Augmentin. At that time she was not having any fever or chills, but just overall did not feel well, and just had some pain and swelling in the bite locations of her left thumb and right finger. She received a tetanus shot at urgent care, she was then discharged home and advised to finish Augmentin prescription, doxycycline was also added. Patient however during that time also developed pain across her lower back, with no history of trauma. MRI of lumbar spine with and without contrast done during that admission showed no evidence of any diskitis or osteomyelitis. FORMERLY [facility], [facility] Medical History Protrusion of intervertebral disc of lumbosacral region Nicotine dependence, cigarettes, uncomplicated Sinusitis Neuropathy Kidney stones Mast cell disorder Barretts esophagus Abdominal hernia History of TIA (transient ischemic attack) (~2011) Hyperglycemia Osteoporosis Panic attacks Diverticulosis RLS (restless legs syndrome) Fatty liver Common variable immunodeficiency Interstitial cystitis Nephrolithiasis History of IBS Hyperlipidemia Surgical History History of nasal surgery History of partial colectomy (~05/2020) History of umbilical hernia repair History of (~1995) History of colonoscopy History of cystoscopy History of bone marrow biopsy (~2003) History of appendectomy History of tonsillectomy (~1997) History of esophagogastroduodenoscopy (EGD) History of arthroscopic surgery of shoulder (~01/2015) History of hysterectomy with bilateral oophorectomy (~07/2007) Family History Maternal Aunt Mental health disorder Social History Housing: House Alcohol intake: current Alcohol intake frequency: does not drink Patient Tobacco Use Status: Former Tobacco user Tobacco use type: Cigarette Years Smoked: 38 (onset 12, 1ppd x30yrs - now 1/4ppd - 30+PYH) e-Cigarette/Vaping Use: Never Used service: No Current occupational status: unemployed Cognitive needs: No Hearing needs: No Vision needs: Yes Questionnaire Thrive Questionnaire Date Thrive assessed: 04/11/23 AUDIT C Alcohol Use Questionnaire (AUDIT-C) 1. How often do you have a drink containing alcohol?: Never 3. How often do you have six or more drinks on one occasion?: Never Total Score: 0 Score Reviewed/Action Taken: Yes DULCE MARIA-7 AMB Questionnaire DULCE MARIA-7 Date DULCE MARIA - 7 assessed: 04/11/23 Source: Developed by Drs. Cesar Santiago, Chandrika Oglesby, Jose L Medina and colleagues, with an educational kendall from [employer]. Review of Systems Const All systems reviewed & are unremarkable except as noted in HPI and below Reports no additional complaints Eyes Reports no additional complaints ENT Reports no additional complaints Card Reports no additional complaints Resp Reports no additional complaints GI Reports no additional complaints Reports no additional complaints Musc Reports as per HPI Physical exam (Primary Care) Vital Signs: Last Vital Signs Pulse 76 03/25/24 13:49 BP 144/86 H 03/25/24 13:49 Pulse Ox 99 03/25/24 13:49 Oxygen Delivery Method Room Air 03/25/24 13:49 BMI result Body Mass Index 24.4 Tobacco/Smoking Status: Tobacco use Status Tobacco use date assessed 03/25/24 03/25/24 13:58 Patient Tobacco Use Status Former Tobacco user 03/25/24 13:58 Tobacco use type Cigarette 03/25/24 13:58 e-Cigarette/Vaping Use Never Used 03/25/24 13:58 Thrive Assessment: Date of Thrive Assessment Date Thrive assessed 04/11/23 03/25/24 13:58 Const General: no acute distress [facility] General nose exam: Normal external nose present Face and sinus: Yes normal facial exam Mouth: Normal oral and palatal mucosa present Throat: Yes posterior oropharynx normal Eyes General: appearance normal, both eyes and all related structures Neck Neck: Yes supple Resp Effort & Inspection: normal respiratory effort Auscultation: clear to auscultation bilaterally Cardio Rhythm: regular rhythm Heart sounds: S1 normal heart sound present and S2 normal heart sound present Extrem Other: Dry, healing wounds on left hand, has full range of motion in affected extremity Assessment and Plan Assessment & Plan (1) Cat bite of finger: Code(s): S61.259A - Open bite of unspecified finger without damage to nail, initial encounter; W55.01XA - Bitten by cat, initial encounter Qualifiers: Encounter type: sequela Qualified Code(s): S61.259S - Open bite of unspecified finger without damage to nail, sequela; W55.01XS - Bitten by cat, sequela Plan: Finish antibiotics given at after discharge, namely Augmentin and doxycycline . Keep follow-up appointment with PCP 04/05/2024. call if any worsening pain, especially if accompanied by fever, redness and swelling of affected extremity (2) Protrusion of intervertebral disc of lumbosacral region: Code(s): M51.27 - Other intervertebral disc displacement, lumbosacral region Plan: Recommended physical therapy with patient states that she does not have any transportation to the 05 of April, advised to continue taking Tylenol arthritis 650 mg per tablet she can take 2 tablets twice a day as needed for pain, prescription sent for methocarbamol 500 mg to take 1 at bedtime, apply Salonpas patch with lidocaine to affected area in left lower back. Medications: New methocarbamol 500 mg PO BEDTIME 30 tabs 0RF Coding Level of Care Code Est Pt Level 4 (45107) Diagnoses Cat bite of finger, sequela S61.259S; W55.01XS Encounter type: sequela Protrusion of intervertebral disc of lumbosacral region M51.27
== END 2024-03-25 16:46 | disposition home or self-care (01) ==
PROVIDERS: PCP Internal Medicine; Visit Provider Internal Medicine
DX: S61.25 Open bite of finger without damage to nail (principal); W55.01XS Bitten by cat, sequela; M51.27 Other intervertebral disc displacement, lumbosacral region
CPT/HCPCS: 99499

== ENCOUNTER 2024-04-05 09:52 | Outpatient (AMB) | payer BC, SELFPAY ==
[2024-04-05 09:53] VITALS: BP 122/84; PULSE 88; O2SAT 98; BMI 23.5
--- NOTE | 2024-04-05 09:53 | A.OFFPC_ITS ---
Vital Signs 04/05/24 09:53 Height 5 ft 4 in Weight 137 lb BMI 23.5 BP 122/84 Blood Pressure Location Lt brachial Position Sitting Pulse 88 Pulse Source Pulse Oximeter Pulse Oximetry (%) 98 Oxygen Delivery Method Room Air Intake Visit Reasons: 6 month follow up Intake Note: Pt is here today for 6 months follow up visit. Allergies Sulfa (Sulfonamide Antibiotics) [SULFA (SULFONAMIDE ANTIBIOTICS)] Allergy (Severe, Verified 04/05/24 09:54) ANAPHYLAXIS ciprofloxacin [Cipro] Allergy (Unknown, Verified 04/05/24 09:54) Muscle Pain Histamine H2 Inhibitors [HISTAMINE H2 INHIBITORS] Allergy (Unknown, Verified 04/05/24 09:54) DIFFICULTY BREATHING Iodinated Contrast Media [IV CONTRAST] Allergy (Unknown, Verified 04/05/24 09:54) hives lactose [LACTOSE] Allergy (Unknown, Verified 04/05/24 09:54) stomach upset levofloxacin [From LEVAQUIN] Allergy (Unknown, Verified 04/05/24 09:54) HIVES morphine [MORPHINE] Allergy (Unknown, Verified 04/05/24 09:54) HIVES Medication List - Last Reconciled 04/05/24 by Keyla Temple MD alprazolam 0.5 mg PO DAILY PRN cholecalciferol (vitamin D3) 50 mcg PO DAILY coenzyme Q10 (Ultra CoQ10) PO dexlansoprazole 60 mg PO DAILY methocarbamol 500 mg PO BEDTIME metoprolol succinate ER 25 mg PO DAILY omega-3 fatty acids (Fish Oil) PO rosuvastatin 5 mg PO DAILY Tobacco use date assessed: 04/05/24 Dental Screening Dental Screen Date: 03/25/24 HPI 6 month follow up HPI Details Patient presents for the follow-up for hospitalization and ER visit for inset infected cat bite wound. Should to doxycycline with Augmentin for 1 week. She she developed symptoms dizziness, positional vertigo, left facial pressure and pain, STEINBERG and pinkish nasal discharge from left nose. She was evaluated in ER was prescribed clotrimazole troches and was given a dose of Diflucan for oral thrush. Patient denies sore throat dysphagia odynophagia fever chills. FORMERLY [facility] Medical History Protrusion of intervertebral disc of lumbosacral region Nicotine dependence, cigarettes, uncomplicated Sinusitis Neuropathy Kidney stones Mast cell disorder Barretts esophagus Abdominal hernia History of TIA (transient ischemic attack) (~2011) Hyperglycemia Osteoporosis Panic attacks Diverticulosis RLS (restless legs syndrome) Fatty liver Common variable immunodeficiency Interstitial cystitis Nephrolithiasis History of IBS Hyperlipidemia Surgical History History of nasal surgery History of partial colectomy (~05/2020) History of umbilical hernia repair History of (~1995) History of colonoscopy History of cystoscopy History of bone marrow biopsy (~2003) History of appendectomy History of tonsillectomy (~1997) History of esophagogastroduodenoscopy (EGD) History of arthroscopic surgery of shoulder (~01/2015) History of hysterectomy with bilateral oophorectomy (~07/2007) Family History Maternal Aunt Mental health disorder Social History Housing: House Alcohol intake: current Alcohol intake frequency: does not drink Patient Tobacco Use Status: Former Tobacco user Tobacco use type: Cigarette Years Smoked: 38 (onset 12, 1ppd x30yrs - now 1/4ppd - 30+PYH) e-Cigarette/Vaping Use: Never Used service: No Current occupational status: unemployed Cognitive needs: No Hearing needs: No Vision needs: Yes Questionnaire Thrive Questionnaire Date Thrive assessed: 04/11/23 DULCE MARIA-7 AMB Questionnaire DULCE MARIA-7 Date DULCE MARIA - 7 assessed: 04/11/23 Source: Developed by Drs. Cesar Santiago, Chandrika Oglesby, Jose L Medina and colleagues, with an educational kendall from [employer]. Review of Systems Const All systems reviewed & are unremarkable except as noted in HPI and below Reports no additional complaints Eyes Reports no additional complaints ENT Reports no additional complaints Card Reports no additional complaints Resp Reports no additional complaints GI Reports no additional complaints Reports no additional complaints Physical exam (Primary Care) Vital Signs: Last Vital Signs Pulse 88 04/05/24 09:53 BP 122/84 04/05/24 09:53 Pulse Ox 98 04/05/24 09:53 Oxygen Delivery Method Room Air 04/05/24 09:53 BMI result Body Mass Index 23.5 Tobacco/Smoking Status: Tobacco use Status Tobacco use date assessed 04/05/24 04/05/24 09:59 Patient Tobacco Use Status Former Tobacco user 04/05/24 09:53 Tobacco use type Cigarette 04/05/24 09:53 e-Cigarette/Vaping Use Never Used 04/05/24 09:53 Thrive Assessment: Date of Thrive Assessment Date Thrive assessed 04/11/23 04/05/24 09:53 Const General: no acute distress HENMT Head: Yes normal to inspection Ears: TM's normal bilaterally General nose exam: Normal external nose present and Normal nasal mucous membranes and turbinates present Face and sinus: Yes normal facial exam and No sinus tenderness Mouth: Normal oral and palatal mucosa present Throat: Yes posterior oropharynx normal Eyes General: appearance normal, both eyes and all related structures Neck Neck: Yes supple Resp Effort & Inspection: normal respiratory effort Auscultation: clear to auscultation bilaterally Cardio Rhythm: regular rhythm Heart sounds: S1 normal heart sound present and S2 normal heart sound present Assessment and Plan Assessment & Plan (1) Sinusitis: Code(s): J32.9 - Chronic sinusitis, unspecified Plan: Obtain x-ray of sinuses and nasal culture will be obtained. Supportive care discussed with the patient she will continue to use saline nasal spray and f/u with ENT (2) Vertigo: Code(s): R42 - Dizziness and giddiness Plan: Try meclizine and if persists she will be referred to vestibular therapy (3) HTN (hypertension): Code(s): I10 - Essential (primary) hypertension Plan: Continue current medications Orders: Orders Complete Blood Count Auto Diff Today J32.9 - Chronic sinusitis, unspecified XR sinus min 3V Today J32.9 - Chronic sinusitis, unspecified Routine Culture w Gram Stain Today J32.9 - Chronic sinusitis, unspecified Medications: New meclizine 25 mg PO TID 14 tabs 0RF Refilled rosuvastatin 5 mg PO DAILY 90 tabs 3RF metoprolol succinate ER 25 mg PO DAILY 90 tabs 3RF Coding Level of Care Code Est Pt Level 4 (32948) Diagnoses Sinusitis J32.9 Vertigo R42 HTN (hypertension) I10
== END 2024-04-05 13:59 | disposition home or self-care (01) ==
PROVIDERS: PCP Internal Medicine; Visit Provider Internal Medicine
DX: J32.9 Chronic sinusitis, unspecified (principal); R42 Dizziness and giddiness; I10 Essential (primary) hypertension
CPT/HCPCS: 99214

== ENCOUNTER 2024-04-05 10:49 | Outpatient (REF) | payer BC, SELFPAY | END 2024-04-05 10:50 | disposition home or self-care (01) | LOC: HO.LAB 10:49 | PROVIDERS: Visit Provider Internal Medicine | DX: J32.9 Chronic sinusitis, unspecified (principal) | CPT/HCPCS: 87070; 87205 ==

== ENCOUNTER 2024-04-05 10:52 | Outpatient (REF) | payer BC, SELFPAY ==
--- NOTE | ~2024-04-05 | XR_ITS ---
EXAMINATION: XR SINUSES CLINICAL INFORMATION: Chronic sinusitis COMPARISON: CT scan of sinuses on 01/17/2022 TECHNIQUE: Martha Seals, lateral, and SMV FINDINGS: There is asymmetric opacification of left maxillary sinus. The rest of the Paranasal sinuses appear clear without air-fluid levels. No fractures are identified. Nasal septum is midline. No radiodense foreign bodies. XR/XR sinus min 3V IMPRESSION: Asymmetric opacification of left maxillary sinus, previously reported as mucus retention cysts and mucosal thickening on CT scan.
[2024-04-05 13:42] LABS: MANUAL DIFF FLAG NO
[2024-04-05 13:55] LABS: Basophils Percent Auto 0.2 % (0-2); Eosinophils Absolute Auto 0.1 X10*3/uL (0.0-0.4); Eosinophils Percent Auto 0.4 % (0-4); Imm Gran Abs Auto 0.05 X10*3/uL (0.00-0.03); Imm Gran Pct Auto 0.4 % (0.0-0.4); Lymphocytes Absolute Auto 3.6 X10*3/uL (1.2-4.9); Lymphocytes Percent Auto 29.4 % (20-40); Mean Corpuscular HGB Conc 33.3 g/dl (31.0-35.0); Mean Corpuscular Hemoglobin 30.4 pg (27.0-33.0); Mean Corpuscular Volume 91.3 fL (80.0-98.0); Mean Platelet Volume 10.3 fL (9.4-12.3); Monocytes Absolute Auto 0.5 X10*3/uL (0.1-1.2); Monocytes Percent Auto 4.1 % (2-11); Neutrophils Absolute Auto 7.9 x10*3/uL (2.0-8.3); Neutrophils Percent Auto 65.5 % (45-73); Platelet Count 253 X10*3/uL (160-400); Red Blood Count 4.93 X10*6/uL (4.20-5.50); Red Cell Distribution Width 12.9 % (11.0-16.0); White Blood Count 12.1 X10*3/uL (4.8-10.8)
== END 2024-04-05 10:53 | disposition home or self-care (01) ==
LOC: HO.HMGCX 10:52
PROVIDERS: PCP Internal Medicine; Visit Provider Internal Medicine
DX: J32.9 Chronic sinusitis, unspecified (principal)
CPT/HCPCS: 36415; 70220; 85025